=== PATIENT | male | born 1985 | race Caucasian/White ===

== ENCOUNTER 2018-10-18 16:17 | Emergency (ER) | payer SELFPAY ==
[~2018-10-18] VITALS: Ht 154.9 cm; Wt 59.0 kg
[2018-10-18] MEDS ORDERED: LIBRIUM10 MG ORAL ×2 (16:31→17:32)
[2018-10-18 16:52] VITALS: BP 143/79
[2018-10-18] MEDS ORDERED: chlordiazePOXIDE 25mg Cap ORAL ONE (17:00)
--- NOTE | 2018-10-18 17:18 | NUR ---
ED Nurse Note: leeroy juárez done imaging done pt medicated . pt is in custody tarik monitor.
--- NOTE | 2018-10-18 17:25 | Diagnostic Imaging Report ---
Indication: Dizziness and seizures Technique: Spiral acquisitions obtained through the abdomen and pelvis. No oral or IV contrast utilized, per urinary stone protocol. Multiplanar reconstructions were generated. Total dose length product 1537.95 mGycm. CTDIvol(s) 70.38,70.38 mGy. Dose reduction achieved using automated exposure control Comparison: none Findings: No acute intracranial hemorrhage or edema, mass effect, nor midline shift. Normal avila-white differentiation. Normal size ventricles and extra-axial CSF spaces. Intact calvarium. Visualized orbits and sinuses are unremarkable. The mastoids are clear. Impression: Negative This agrees with the preliminary interpretation provided overnight by [facility]. The CT scanner at [facility] is accredited by the [employer] and the scans are performed using protocols designed to limit radiation exposure to as low as reasonably achievable to attain images of sufficient resolution adequate for diagnostic evaluation. Brain
--- NOTE | 2018-10-18 17:31 | Emergency Room Report ---
History of Present Illness General Chief Complaint: Medical Clearance Source: Patient Present Illness HPI 33-year-old male with history of seizure disorder and alcohol abuse brought in by [employer] for medical clearance. Patient reports that he was in his cell today and he started having a seizure as he has not taken his Librium today. Patient reports that he had his head and lost consciousness however denies headache and dizziness. Denies nausea vomiting. Reports that he is compliant taking his Librium until today. However does not have a neurologist. Denies chest pain, shortness of breath, palpitation, and other associated symptoms. Patient did not have any redness to his head injury. Denies urinary and bowel incontinence. Allergies: Coded Allergies: No Known Allergies (Unverified , 10/18/18) Patient History Past Medical History: see triage record Past Surgical History: unable to obtain Pertinent Family History: none Social History: Reports: alcohol use Immunizations: UTD Reviewed Nursing Documentation: PMH: Agreed; PSxH: Agreed Nursing Documentation-PMH Hx Seizures: Yes - epilepsy Review of Systems All Other Systems: negative except mentioned in HPI Physical Exam Vital Signs Date Time Temp Pulse Resp B/P (MAP) Pulse Ox O2 Delivery O2 Flow Rate FiO2 10/18/18 16:27 98.1 115 20 143/79 (100) 94 Room Air Sp02 EP Interpretation: reviewed, normal General Appearance: no apparent distress, alert, GCS 15, non-toxic Head: normocephalic, atraumatic Eyes: bilateral eye normal inspection, bilateral eye PERRL ENT: hearing grossly normal, normal pharynx, no angioedema, normal voice Neck: full range of motion, supple/symm/no masses Respiratory: chest non-tender, lungs clear, normal breath sounds, speaking full sentences Cardiovascular #1: regular rate, rhythm, no edema Gastrointestinal: normal bowel sounds, non tender, soft, non-distended, no guarding, no rebound Genitourinary: normal inspection, no CVA tenderness Musculoskeletal: back normal, gait/station normal, normal range of motion, non- tender Neurologic: alert, oriented x3, responsive, motor strength/tone normal, sensory intact, speech normal Psychiatric: judgement/insight normal, memory normal, mood/affect normal, no suicidal/homicidal ideation Skin: no rash Lymphatic: no adenopathy Medical Decision Making PA Attestation All my diagnosis and treatment plans were reviewed ad discussed with my supervising physician Dr. Ch Diagnostic Impression: Primary Impression: Seizure disorder ER Course 33-year-old male with history of seizure disorder and alcohol abuse brought in by [employer] for medical clearance. Patient reports that he was in his cell today and he started having a seizure as he has not taken his Librium today. Patient reports that he had his head and lost consciousness however denies headache and dizziness. Denies nausea vomiting. Reports that he is compliant taking his Librium until today. However does not have a neurologist. Denies chest pain, shortness of breath, palpitation, and other associated symptoms. Patient did not have any redness to his head injury. Denies urinary and bowel incontinence. Ddx considered but are not limited to: cerebral hematoma, concussion, skull fracture, head contusion , seizure disorder without compulsions Vital signs: are WNL, pt. is afebrile H&PE are most consistent with: Seizure disorder without compulsions ORDERS: head CT no contrast , tox screen, Librium ED INTERVENTIONS: Librium DISCHARGE: At this time pt. is stable for d/c to home. Will provide printed patient care instructions, and any necessary prescriptions. Care plan and follow up instructions have been discussed with the patient prior to discharge. Patient was discharged along. Patient cleared to go back. Advised to take his Librium and follow-up with a neurologist. Patient diluted his urine in order to obscure the results however no tox screen is necessary as patient is being kept in shelter overnight. CT/MRI/US Diagnostic Results CT/MRI/US Diagnostic Results : Imaging Test Ordered: head CT no contrast Impression No hematoma no fracture. Last Vital Signs Date Time Temp Pulse Resp B/P (MAP) Pulse Ox O2 Delivery O2 Flow Rate FiO2 10/18/18 16:52 98.1 20 143/79 94 Room Air 10/18/18 16:52 102 Disposition: HOME, SELF-CARE Condition: Stable Scripts Chlordiazepoxide Hcl* (LIBRIUM*) 10 Mg Capsule 10 MG ORAL THREE TIMES A DAY for 10 Days, #21 CAP 0 Refills Prov: Chaz Christianson 10/18/18 Referrals: NOT CHOSEN IPA/MD,REFERRING (PCP) Patient Instructions: Seizure, Adult, [id number] Additional Instructions: Take medication as directed follow-up with primary care provider avoid drinking alcohol or any drug use as they were trigger your seizures. Chaz Christianson Oct 18, 2018 17:31
--- NOTE | 2018-10-18 17:43 | NUR ---
ER DISCHARGE NOTE: Patient is cleared to be discharged per ERMD, pt is aox4, on room air, with stable vital signs. pt was given dc and prescription instructions, pt was able to verbalize understanding, pt id band removed without complications. pt is able to ambulate with steady gait. pt took all belongings. pt in custody taken by [facility]'s dept.
[2018-10-18 18:30] VITALS: BP 140/79
== END 2018-10-18 17:43 | disposition home or self-care (01) ==
LOC: EMR 16:51
DX: G40.909 Epilepsy, unspecified, not intractable, without status epilepticus (principal)
CPT/HCPCS: 70450; 80307; 99284